=== PATIENT | female | born 1930 | race Caucasian/White ===

== ENCOUNTER → 2017-06-26 | Outpatient (CLI) | payer MEDICARE ==
[~2017-06-26] MED LIST: IOHEXOL 350 MG/ML 10 ML VIAL (for RAD DIAG) IVCONTRAST ONE
--- NOTE | 2017-06-26 13:05 | PD.FRAIL ---
Date: Jun 26, 2017 Height: Weight: Assessment Performed: Outpatient Albumin 3.7 Pass/Fail: Pass [place] Activities Daily Living [place] ADL Score: Bathing(bathes self/help in single area): [place] (1), Dressing(gets/puts clothes on self): [place] (1), Toileting(goes without help): [place] ( 1), [facility] [place] (1), Continence( complete self-control): [place] (1), Feeding(self, prep by another allowed) : [place] (1), Total: 6 Pass/Fail: Pass Site Promotion Agent Strength Grasp 1: 15 Grasp 2: 12 Grasp 3: 10 Average: 12.3 Pass/Fail: Fail 15-Foot Walk 15-Foot Walk (seconds): 10.6 (uses cane) Pass/Fail: Fail Total Frailty Total Frailty (out of 4): 2 Frailty Index Score Reference Site Promotion Agent Strength: BMI: <=23 Cutoff for prenatal teacher strength(Kg): <=17 BMI: 23.1-26 Cutoff for prenatal teacher strength(Kg): <=17.3 BMI: 26.1-29 Cutoff for prenatal teacher strength(Kg): <=18 BMI: >29 Cutoff for prenatal teacher strength(Kg): <=21 15-Foot Walk: Height: <=159 cm 15-Foot Walk Cutoff Time: >=7 seconds Height: >159 cm 15-Foot Walk Cutoff Time: >=6 seconds Dasha Kim RN Jun 26, 2017 13:05
[2017-06-26 15:08] LABS: AUTOMATED NEUTROPHIL # 5.7 TH/MM3 (1.8-7.7); BASOPHIL % 0.4 % (0.0-2.0); EOSINOPHIL # 0.1 TH/MM3 (0-0.4); EOSINOPHIL % 1.2 % (0.0-4.0); HEMATOCRIT 37.5 % (35.0-46.0); LYMPH % 15.4 % (9.0-44.0); LYMPHOCYTE # 1.2 TH/MM3 (1.0-4.8); MEAN CELL VOLUME 96.5 FL (80.0-100.0); MEAN CORPUSCULAR HEMOGLOBIN 33.4 PG (27.0-34.0); MEAN CORPUSCULAR HGB CONC 34.6 % (32.0-36.0); MEAN PLATELET VOLUME 8.9 FL (7.0-11.0); MONO % 8.7 % (0.0-8.0); MONOCYTE # 0.7 TH/MM3 (0-0.9); NEUT % 74.3 % (16.0-70.0); PLATELET COUNT 170 TH/MM3 (150-450); RED BLOOD COUNT 3.88 MIL/MM3 (4.00-5.30); RED CELL DISTRIBUTION WIDTH 12.6 % (11.6-17.2); WHITE BLOOD COUNT 7.7 TH/MM3 (4.0-11.0)
[2017-06-26 15:26] LABS: PROTHROMBIN TIME - PATIENT 10.4 SEC (9.8-11.6)
--- NOTE | 2017-06-26 15:35 | RADRPT ---
EXAM DATE/TIME: 06/26/2017 09:32 [facility] COMPARISON: No previous studies available for comparison. INDICATIONS : Pre op TAVR. IV CONTRAST: 100 cc Omnipaque 350 (iohexol) IV RADIATION DOSE: 11.48 CTDIvol (mGy) MEDICAL HISTORY : None SURGICAL HISTORY : None. ENCOUNTER: Initial ACUITY: 1 day PAIN SCALE: 0/10 LOCATION: chest TECHNIQUE: Volumetric scanning was performed using a multi-row detector CT scanner. The data was post processed with a variety of visualization algorithms including full volume maximum intensity projection, multi -planar sliding thin slab reformation, curved planar reformation, and surface rendering techniques. Using automated exposure control and adjustment of the mA and/or kV according to patient size, radiat ion dose was kept as low as reasonably achievable to obtain optimal diagnostic quality images. DIC OM format image data is available electronically for review and comparison. FINDINGS: CARDIAC: The coronary system is right dominant. There is normal anatomic branching of the coronaries from the arch. There is minimal atherosclerotic plaquing. The coronaries are otherwise widely patent. AORTIC ROOT/VALVE: There is a tricuspid aortic valve. There is moderate calcification of the aortic annulus and the valv e leaflets. THORACIC AORTA: The aortic root measures 2.9 cm just above the plane of the valve. The tubular portion of the ascendi ng aorta is somewhat larger measuring 3.7 cm. There is normal anatomic branching of the great vessels from the arch. The arch is normal in caliber measuring 2.7 cm. The descending thoracic aorta is norm al in caliber and widely patent throughout its course. The thoracic aorta measures 2.4 cm in its mid aspect. ABDOMINAL AORTA: There is mild fusiform dilation of the proximal celiac artery. The proximal celiac measures 1.1 cm in its largest segment. The splenic and the hepatic or patent. The CATY is normal in caliber with modera te ostial plaquing. There is a single renal artery on the right. There is a small accessory renal on the left. The renal arteries are widely patent. The infrarenal aorta is normal in caliber throughout its course and widely patent. Maximum dimension is 1.9 cm. There is mild diffuse atherosclerotic plaq uing. The CATY is patent. PELVIC CIRCULATION : The common iliac arteries are mildly diseased and sizable vessels bilaterally. The left common iliac measures 1.2 cm. The right common iliac measures 1.0 cm. The internal iliac and external iliac circul ation is only minimal disease and widely patent throughout its course. The common femoral arteries ar e widely patent bilaterally. THORAX: Imaging through the thorax demonstrates volume loss on the left. There are fibrotic changes in around the left hilus suggesting previous radiation therapy. There is a 3.1 x 2.9 cm area adjacent to the a rch medially which appears to represent a sizable area of fibrosis and consolidated lung. No previous exams are available for direct comparison. The right lung is clear. The heart is mildly enlarged. No significant hilar or mediastinal adenopathy is seen. Incidental note is made of calcification of the posterior wall of the left ventricle suggesting previous myocardial infarction. ABDOMEN: The appearance of the liver, spleen, pancreas, and adrenal glands and right kidney is within normal l imits. Incidental note is made of a 2.4 cm simple cyst within the left kidney. No retroperitoneal chas nopathy is present. PELVIS: There is no free fluid within the pelvis. No iliac or inguinal adenopathy is seen. CONCLUSION: 1. Calcification of the aortic annulus and aortic valve leaflets as described above. Measurements of the aortic root and ascending aorta are listed above. 2. Volume loss in the left lung with fibrotic change suggesting previous radiation therapy. 3. Calcification in the posterior wall of the left ventricle suggesting previous infarct. Marino Sloan MD on June 26, 2017 at 15:24 Board Certified Radiologist. This report was verified electronically.
[2017-06-26 15:51] LABS: ALBUMIN 3.7 GM/DL (3.4-5.0); BICARBONATE 31.5 MEQ/L (21.0-32.0); CALCIUM 8.9 MG/DL (8.5-10.1); CREATININE 0.89 MG/DL (0.50-1.00)
--- NOTE | 2017-06-30 12:16 | RSPPFT ---
DATE OF PROCEDURE: 06/26/17 COMMENTS: The forced vital capacity, FEV1, FEV1/FVC ratio and FEF 25-75 are all normal. IMPRESSION: This is a normal spirometry.
== END ==
LOC: HRSP 07:39
PROVIDERS: ATTEND Internal Medicine
DX: Z01.812 Encounter for preprocedural laboratory examination (principal); I35.0 Nonrheumatic aortic (valve) stenosis
CPT/HCPCS: 36415; 74174; 80048; 82040; 85025; 85610; 94010; Q9967

== ENCOUNTER 2017-07-09 07:45 | Inpatient (IN) | payer MEDICARE ==
[~2017-07-09] VITALS: Ht 154.9 cm; Wt 73.6 kg
[2017-07-09] VITALS (7 sets, daily range): BP systolic 123–169; BP diastolic 42–66; PULSE 52–65; RESP 16–18; TEMP 96.1–98.2; O2SAT 95–100
[2017-07-09] MEDS ORDERED: PAXI10TA8 PO (09:08)
[2017-07-09] MEDS ORDERED: BENA5TAB PO (09:08)
[2017-07-09] MEDS ORDERED: DILT240C44 PO (09:08)
[2017-07-09] MEDS ORDERED: LEVO50TA4 PO (09:08)
[2017-07-09] MEDS ORDERED: ALEN1TAB48 PO (09:08)
[2017-07-09] MEDS ORDERED: MUPIROCIN 2% OINT 1 APPLIC/GM SYRINGE EACH NARE PRN (09:15)
[2017-07-09] MEDS ORDERED: POVIDONE IODINE 5% (ANTISEPSIS KIT) EACH NARE PRN (09:15)
[2017-07-09] MEDS ORDERED: SODIUM CHLOR 0.9% 1000 ML 1,000 ML IV SCH (09:15)
[2017-07-09] MEDS ORDERED: CHLORHEXIDINE GLUCONATE 2 % 1 PACK (2 CLOTHS) TOPICAL PRN ×2 (09:15→09:30)
[2017-07-09] MEDS ORDERED: CEFAZOLIN INJ 2,000 MG in SODIUM CHLORIDE 0.9% INJ 100 ML IV PRN (09:15)
[2017-07-09] MEDS ORDERED: LACTATED RINGER'S 1000 ML IV PRN (09:30)
[2017-07-09] MEDS ORDERED: METOPROLOL TARTRATE 25 MG TAB PO PRN (09:30)
[2017-07-09] MEDS ORDERED: POVIDONE IODINE 5% (ANTISEPSIS KIT) 4 APPLICATIONS EACH NARE PRN (09:30)
[2017-07-09] MEDS ORDERED: SODIUM CHLORID 0.9% 500 ML IV PRN (09:30)
[2017-07-09] MEDS ORDERED: ASPIRIN 325 MG TAB PO SCH (09:30)
[2017-07-09 09:53] LABS: AUTOMATED NEUTROPHIL # 4.1 TH/MM3 (1.8-7.7); BASOPHIL % 0.5 % (0.0-2.0); EOSINOPHIL # 0.1 TH/MM3 (0-0.4); EOSINOPHIL % 1.1 % (0.0-4.0); HEMOGLOBIN 11.7 GM/DL (11.6-15.3); LYMPHOCYTE # 0.7 TH/MM3 (1.0-4.8); MEAN CELL VOLUME 96.7 FL (80.0-100.0); MEAN CORPUSCULAR HEMOGLOBIN 33.4 PG (27.0-34.0); MEAN CORPUSCULAR HGB CONC 34.5 % (32.0-36.0); MEAN PLATELET VOLUME 9.5 FL (7.0-11.0); MONO % 10.7 % (0.0-8.0); MONOCYTE # 0.6 TH/MM3 (0-0.9); NEUT % 75.7 % (16.0-70.0); PLATELET COUNT 129 TH/MM3 (150-450); RED BLOOD COUNT 3.52 MIL/MM3 (4.00-5.30); RED CELL DISTRIBUTION WIDTH 13.1 % (11.6-17.2); WHITE BLOOD COUNT 5.4 TH/MM3 (4.0-11.0)
[2017-07-09 10:00] LABS: PROTHROMBIN TIME - PATIENT 10.5 SEC (9.8-11.6)
[2017-07-09 10:07] LABS: BICARBONATE 25.9 MEQ/L (21.0-32.0); CALCIUM 8.5 MG/DL (8.5-10.1); CREATININE 0.65 MG/DL (0.50-1.00)
[2017-07-09] MEDS ORDERED: POTASSIUM CHLORIDE 20 MEQ/10 ML VIAL ONE (11:11)
--- NOTE | 2017-07-09 11:21 | MH ---
cc: Nigel Newell MD,Koby Pepe DATE OF ADMISSION: 07/09/2017 INDICATION: Transcatheter aortic valve replacement. PRIMARY CARE PHYSICIAN: Dr. Rico. CHARGE LOADER: Dr. Escobar. BRIEF HISTORY OF PRESENT ILLNESS: This is an 87-year-old female who follows in the outpatient setting with Dr. Escobar, cardiology. The patient has symptoms of exertional dyspnea and chest pain. She underwent cardiac catheterization, which primarily revealed nonobstructive mild coronary artery disease. She was then referred to [facility] for consideration of transcatheter aortic valve replacement. In the preoperative workup, she was evaluated by both Dr. Hamilton and Dr. Morocho, cardiothoracic surgery, and felt to be high risk for surgical aortic valve replacement through traditional routes. She underwent a full pretranscatheter aortic valve workup and is now here today for inpatient admission and planned procedure. PAST MEDICAL HISTORY: Severe aortic valve stenosis, chronic diastolic heart failure, hypertension, hypothyroidism, and lung cancer. ALLERGIES: GABAPENTIN. SOCIAL HISTORY: Prior tobacco use. Denies any alcohol or drug use. REVIEW OF SYSTEMS: A 12-point review of systems performed, negative unless otherwise noted in the history of present illness. LABORATORY DATA: WBC 5.4, hemoglobin is 11.7, hematocrit is 34.0, platelet count is 129. INR is 1.0. Sodium 144, potassium 3.2, BUN is 19, creatinine 0.65. MEDICATIONS: See medication reconciliation. PHYSICAL EXAMINATION: VITAL SIGNS: Temperature is 97, pulse is 60, blood pressure 156/66 mmHg. GENERAL: Alert and oriented x 2, no acute distress. HEENT: Shows pupils reactive to light and accomodation. Extraocular movement intact. NECK: No elevation of jugular venous distension. No thyromegaly. No lymphadenopathy. No carotid bruit. LUNGS: Clear to auscultation bilaterally. CARDIOVASCULAR: Regular rhythm. A III/ crescendo decrescendo murmur at left sternal border. ABDOMEN: Nontender, nondistended with good bowel sounds. No hepatosplenomegaly. EXTREMITIES: Show no clubbing, cyanosis or edema. Good peripheral pulses. NEUROLOGIC: Cranial nerves intact. Motor, sensory grossly intact. LABORATORY DATA: Sodium 144, potassium 3.2, chloride is 109, BUN is 19, creatinine is 0.65. INR is 1. WBC 5.4, hemoglobin is 11.7, platelet count is 129. PRE-TAVR WORKUP: STS score calculated 6.05%. [place] Heart Association class III. BMI 28.5. 2/4 frailty score. ELECTROCARDIOGRAM: Sinus bradycardia, no intraventricular conduction delay. Pulmonary function tests normal. FEV1 is 1.51. Echocardiogram performed on 04/17/2017 shows jet velocity of 5.53 meters per second, mean gradient 57.3 mmHg, calculated aortic valve area of 0.49 cm2 with an ejection fraction 65-70%. Mild mitral and tricuspid regurgitation. Cardiac catheterization performed on 04/24/2017 showed mild nonobstructive coronary disease. CT analysis performed on 06/26/2017 shows a short annulus diameter of 20.9 mm, the long annulus diameter of 26.4 mm, annular area of 430.1 mm2. Sinus of Valsalva 29.7 mm and sinotubular junction 28.7 mm. Left coronary height 15.6 mm and right coronary height 16.8 mm. Lower extremity runoff shows minimal luminal diameter of the right lower extremity 8.3 mm and left 7.3 mm. ASSESSMENT: 1. Severe aortic valve stenosis. 2. Hypertension, history of stroke, hypothyroidism, home oxygen and diastolic congestive heart failure, New Heart Association class III. PLAN: The patient was evaluated by cardiothoracic surgery in the preoperative setting, felt to be high risk for surgery traditional surgical AVR, is now here today for transcatheter aortic valve replacement and has qualifying echo documenting severe aortic valve stenosis in the setting a normal ejection fraction. We are going to plan for 26 mm S3 Lake bioprosthetic percutaneous valve deployment via a right common femoral approach. The risks, benefits, and alternatives were discussed with the patient. The patient understood and consented to proceed. MD ASHLI Perera/KD , 10:46 AM , 11:20 AM
[2017-07-09] MEDS ORDERED: PROTAMINE SULFATE 50 MG/5 ML VIAL ONE (11:35)
[2017-07-09] MEDS ORDERED: HEPARIN SODIUM - SQ 10,000 UNITS/ML VIAL ONE (11:35)
[2017-07-09] MEDS ORDERED: PHENYLEPH/NS 1000 MCG/10 ML SYR IV ONE (12:00)
[2017-07-09] MEDS ORDERED: LIDOCAINE HCL 1% PF 5 ML SYRINGE OTHER ONE (12:00)
[2017-07-09] MEDS ORDERED: ROCURONIUM INJ 50 MG/5 ML SYRINGE IV PUSH ONE (12:00)
[2017-07-09] MEDS ORDERED: ONDANSETRON HCL 4 MG/2 ML VIAL IV ONE (12:00)
[2017-07-09] MEDS ORDERED: SODIUM CHLOR 0.9% 1000 ML INJ 1,000 ML IV ONE (12:00)
[2017-07-09] MEDS ORDERED: NEOSTIGMINE 5 MG/5 ML SYRINGE IV PUSH ONE (12:00)
[2017-07-09] MEDS ORDERED: PROPOFOL 200 MG/20 ML AMP IV ONE (12:00)
[2017-07-09] MEDS ORDERED: DEXAMETHASONE SOD PHOS 4 MG/ML VIAL IV ONE (12:00)
[2017-07-09] MEDS ORDERED: ePHEDrine/NS 25 MG/5 ML SYRINGE IV ONE (12:00)
[2017-07-09] MEDS ORDERED: GLYCOPYRROLATE 1 MG/5 ML SYRINGE IV PUSH ONE (12:00)
[2017-07-09] MEDS ORDERED: IOHEXOL 350 MG/ML 100 ML BTL (for RAD DIAG) IVCONTRAST ONE (12:34)
--- NOTE | 2017-07-09 13:03 | EKG ---
Date Performed: 07/09/2017 Time Performed: 09:37:56 PTAGE: 87 years EKG: Sinus bradycardia. Prolonged QT interval Lateral ST-T changes are nonspecific Borderline EC G NO PREVIOUS TRACING DOCTOR: Nigel Newell Interpretating Date/Time 07/09/2017 13:02:01
[2017-07-09] MEDS ORDERED: MIDAZOLAM HCL 2 MG/2 ML VIAL ONE (13:38)
[2017-07-09] MEDS ORDERED: fentaNYL CITRATE 250 MCG/5 ML AMP ONE (13:39)
[2017-07-09] MEDS ORDERED: GLUCAGON 1 MG/ML VIAL OTHER PRN (13:45)
[2017-07-09] MEDS ORDERED: DEXTROSE 50% IN WATER 50 ML VIAL(D50) IV PUSH PRN (13:45)
[2017-07-09] MEDS ORDERED: SODIUM CHLOR 0.9% 1000 ML INJ 1,000 ML IV SCH ×2 (14:00→15:00)
[2017-07-09] MEDS ORDERED: CLOPIDOGREL 300 MG TAB PO ONE (14:00)
[2017-07-09] MEDS ORDERED: MISC INFORMATION OTHER SCH (14:00)
--- NOTE | 2017-07-09 14:03 | PD.OP ---
cc: Asiya Morocho MD; Nigel Newell MD Operative Report Date of Surgery: Jul 09, 2017 Preoperative Diagnosis: (1) Aortic stenosis (2) Diastolic heart failure Postoperative Diagnosis: same Procedure: Transcatheter aortic valve replacement with a 26 Veronika 3 tissue valve [place] aortic valvuloplasty with a 23 Lake balloon Bilateral percutaneous femoral artery access with Perclose closure on the right Left Femoral venous access Aortography Fluoroscopy Anesthesia: Dr. Green Surgeon: Asiya Morocho Co-surgeon - Dr. Newell Bellhop Captain(s): none Operation and Findings: The risks, benefits, complications, treatment options, and expected outcomes were discussed with the patient. The possibilities of reaction to medication, pulmonary aspiration, perforation of viscus, bleeding, recurrent infection, the need for additional procedures, failure to diagnose a condition, and creating a complication requiring transfusion or operation were discussed with the patient. The patient concurred with the proposed plan, giving informed consent. The site of surgery properly noted/marked. The patient was taken to the hybrid operating room, identified as Ina Mederoscken and the procedure verified as Transcatheter Aortic Valve Replacement. A Time Out was held and the above information confirmed. Standard monitoring lines and Rosa catheter were placed. General anesthesia was induced. The patient was prepped and draped in a sterile fashion. Initially, left femoral arterial and venous access was acquired using a Seldinger percutaneous technique. The details of this procedure were dictated under separate note by cardiology. Once a pigtail was positioned in the aortic annulus and a temporary transvenous pacemaker wire was placed in the right ventricular apex and tested, a the right femoral artery was accessed using a needle followed by a guidewire under fluoroscopic guidance. The patient was heparinized and Perclose devices deployed for later closure. Serial dilators were used to dilate the right femoral artery to 14 Romanian caliber. The Lake sheath was then inserted into the external iliac artery up to the distal abdominal aorta. Arch aortography was performed to define the implant view. A balloon aortic valvuloplasty was then performed using a 23 x 4 balloon with the patient being paced at 180 beats per minute. A 26 Lake Veronika transcatheter aortic valve was then positioned in the annulus and deployed with the patient being paced at 180 beats per minute. Following deployment, the valve apparatus was withdrawn and ABEBE were performed to assess the valve. The valve had no significant perivalvular leaks. Gradients were then measured and the sheath was removed. Perclose sutures were secured and the patient received protamine. An additional angioseal was deployed on the right for hemostasis. Sterile dressings were placed. At the end of the operation, all sponge, instruments, and needle counts were correct. The patient was transferred to the CVICU in stable condition. Findings: 26 S3 TAVR with no PVL. Implants: 26 Veronika 3 tissue valve Complications: none Disposition: to CVICU in stable condition Asiya Morocho MD Jul 09, 2017 14:03
--- NOTE | 2017-07-09 14:40 | ECHRPT ---
Indication: TAVR CONCLUSIONS Normal left ventricular size and wall thickness. The left ventricular systolic function is normal wi th an estimated ejection fraction in the range of 60-65%. Left ventricular diastolic function parameters a re normal. Severe aortic valve stenosis. bioprosthetic aortic valve device successfully deployed BP: / HR: Rhythm: Technical Quality: Medications Complications Proc. Components The patient was brought to the diagnostic imaging area in a fasting state after o btaining an informed consent. The patient was premedicated with IV Versed and IV Fentanyl. The creel hand ior pharynx was sprayed with Cetacaine spray and the patient was administered viscous Xylocaine 2 %. The ABEBE probe was passed into the posterior pharynx , mid-esophagus, distal esophagus, and gastric fundus. ABEBE was performed at multiple levels. The patient tolerated the procedure well and there were no complications. The patient was transferred to the floor in satisfactory condition.. FINDINGS LEFT VENTRICLE Normal left ventricular size and wall thickness. The left ventricular systolic function is normal wi th an estimated ejection fraction in the range of 60-65%. Left ventricular diastolic function parameters a re normal. RIGHT VENTRICLE Normal right ventricular size and systolic function. LEFT ATRIUM The left atrial size is normal. RIGHT ATRIUM The right atrial size is normal. ATRIAL SEPTUM A patent foramen ovale is present with a [id number] shunt demonstrated by color flow Doppler interrogation. AORTA The aortic root and proximal ascending aorta are normal in size on limited imaging. MITRAL VALVE Trace mitral valve regurgitation. AORTIC VALVE Severe aortic valve stenosis TRICUSPID VALVE Structurally normal tricuspid valve. No tricuspid valve stenosis or regurgitation. VESSELS The inferior vena cava is normal in size. PULMONARY VALVE The pulmonary valve is not well visualized. PERICADIUM No pericardial effusion. Nigel Newell MD, FACC (Electronically Signed) Final Date:09 July 2017 14:39
[2017-07-09] MEDS ORDERED: cloNIDine HCL 0.1 MG TAB PO PRN (15:00)
[2017-07-09] MEDS ORDERED: hydrALAZINE HCL 50 MG TAB PO PRN (15:00)
[2017-07-09] MEDS: METOPROLOL TARTRATE 25 MG TAB PO SCH ×2 (15:00→21:20)
--- NOTE | 2017-07-09 18:46 | PD.PROCEDR ---
Procedure Note Procedure Procedure: Transesophageal Echocardiography Diagnosis: Severe aortic stenosis Indications: Perioperative planning for transcatheter aortic valve replacement Consent: Obtained Anesthesia: General endotracheal anesthesia Description of the Procedure: The patient was sedated and mechanically ventilated. The echo probe was inserted easily and without resistance. At the conclusion of the procedure, the echo probe was removed. Please see detailed echocardiogram report for formal findings. Preliminary Findings (not confirmed): pre-procedure: 1) grossly normal biventricular function 2) [id number] tricuspid regurgitation 3) evidence of continuous [id number]-[id number] intra-atrial shunting by color flow Doppler 4) evidence of left atrial hypertension 5) mild mitral regurgitation 6) severe aortic stenosis 7) no aortic regurgitation 8) no pericardial effusion post-procedure: 1) s/p successful placement of transcatheter aortic valve 2) no evidence of bioprosthetic valve stenosis 3) no perivalvular leak 4) no pericardial effusion The patient tolerated the procedure well with no hemodynamic instability. There were no immediate complications noted. There was minimal EBL. I personally performed the procedure. Rolando Michele MD Jul 09, 2017 18:46
--- NOTE | 2017-07-09 18:54 | PD.CONS ---
[facility] Service Critical Care Medicine Consult Requested By Dr. Newell Reason for Consult perioperative management of medical comorbidities Primary Care Physician Calin Rico MD History of Present Illness This is an 87-year-old female with history of severe aortic stenosis who presents for elective transcatheter aortic valve replacement. She underwent uncomplicated procedure via common iliac access. At the conclusion of the case , she was noted to be in third-degree heart block requiring transvenous pacing. She arrives to the CVICU recently extubated and arousing from anesthesia. Due to arousal from anesthesia only a limited review of systems is obtained. It is negative for headache, nausea, vomiting, chest pain, shortness of breath. The remainder of the history is difficult to obtain due to her arousing from anesthesia. Review of Systems ROS Limitations: Clinical Condition, Altered Mental Status Eyes: DENIES: Eye pain Respiratory: DENIES: Shortness of breath Cardiovascular: DENIES: Chest pain Gastrointestinal: DENIES: Nausea, Vomiting Neurologic: DENIES: Headache ROS Arousing from anesthesia Past Family Social History Allergies: Coded Allergies: gabapentin (Verified Allergy, Severe, 07/09/17) Past Medical History Severe aortic stenosis Chronic diastolic heart failure Hypertension Hypothyroid Lung cancer Past Surgical History No recent pertinent past surgical history Reported Medications Paxil (Paroxetine HCl) 10 Mg Tab 10 Mg PO DAILY Levothyroxine (Levothyroxine Sodium) 50 Mcg Tab 50 Mcg PO DAILY Diltiazem CD 24 HR 240 Mg Caper 240 Mg PO DAILY Benazepril (Benazepril HCl) 5 Mg Tab 5 Mg PO DAILY Alendronate (Alendronate Sodium) 70 Mg Tab 70 Mg PO Q7D Active Ordered Medications See MAR Family History Reviewed and found to be noncontributory to her acute illness Social History Former smoker. Denies EtOH or other drugs. Physical Exam Vital Signs Vital Signs Date Time Temp Pulse Resp B/P (MAP) Pulse Ox O2 Delivery O2 Flow Rate FiO2 07/09/17 16:09 99 Nasal Cannula 2.00 07/09/17 15:46 52 07/09/17 15:00 97.5 53 16 158/61 (93) 99 156/52 (86) 07/09/17 15:00 52 07/09/17 14:13 54 07/09/17 13:00 54 07/09/17 13:00 56 07/09/17 13:00 96.1 54 16 141/55 (83) 100 148/58 (88) 07/09/17 09:09 97.8 59 16 156/66 (96) 98 Physical Exam GENERAL: Elderly female, lying in bed, arousing from anesthesia HEENT: Normocephalic. Atraumatic. Pupils equal, round, reactive, conjugate. Mucous membranes are moist NECK: Trachea is midline. There is no JVD. Right IJ to reduce her sheath with transvenous pacer in place, site is clean dry and intact. CHEST: Equal chest rise. Nasal cannula oxygen. CARDIOVASCULAR: Bradycardic rate, paced rhythm. V paced at 50. Transvenous pacer set VVI 50. ABDOMEN: Soft, nontender, nondistended. No guarding. MUSCULOSKELETAL: Pulses 2+. No peripheral edema. Bilateral groin sites with dressings intact, very minimal hematoma over the left groin. Distal pulses dopplerable. NEUROLOGICAL: RASS -2. Arousing from anesthesia. Moves all extremities. Weakly follows commands when aroused. No focal deficits. Laboratory Laboratory Tests Test 07/09/17 09:00 White Blood Count 5.4 Red Blood Count 3.52 Hemoglobin 11.7 Hematocrit 34.0 Mean Corpuscular Volume 96.7 Mean Corpuscular Hemoglobin 33.4 Mean Corpuscular Hemoglobin Concent 34.5 Red Cell Distribution Width 13.1 Platelet Count 129 Mean Platelet Volume 9.5 Neutrophils (%) (Auto) 75.7 Lymphocytes (%) (Auto) 12.0 Monocytes (%) (Auto) 10.7 Eosinophils (%) (Auto) 1.1 Basophils (%) (Auto) 0.5 Neutrophils # (Auto) 4.1 Lymphocytes # (Auto) 0.7 Monocytes # (Auto) 0.6 Eosinophils # (Auto) 0.1 Basophils # (Auto) 0.0 CBC Comment DIFF FINAL Differential Comment Prothrombin Time 10.5 Prothromb Time International Ratio 1.0 Activated Partial Thromboplast Time 25.9 Blood Urea Nitrogen 19 Creatinine 0.65 Random Glucose 97 Calcium Level 8.5 Sodium Level 144 Potassium Level 3.2 Chloride Level 109 Carbon Dioxide Level 25.9 Anion Gap 9 Estimat Glomerular Filtration Rate 87 Result Diagram: 07/09/17 0900 07/09/17 0900 Assessment and Plan Assessment and Plan Assessment: 87-year-old female postop day 0 status post transcatheter aortic valve replacement. Admit to ICU. IV fluids. Close monitoring. Status post transcatheter aortic valve replacement via groin access 07/09 Maintenance IV fluids Continue Rosa overnight Out of bed after flat time Frequent neurovascular checks Close urine output monitoring And a coagulation per minor Third-degree heart block Consult elective physiology Continued transvenous pacer VVI 50 Hypertension Restart home antihypertensives as needed Goal systolic blood pressure less than 180 Hypothyroidism Restart home Synthroid Chronic diastolic heart failure Evidence of chronic volume overload on echo. Will gently fluid resuscitate postoperatively, but would have low threshold for diuresis on postop day 1. Incentive spirometer to bedside Advance diet after flat time SCDs Remain in ICU. Rolando Michele MD Jul 09, 2017 18:54
[2017-07-09] MEDS ORDERED: ALENDRONATE SODIUM 70 MG TAB PO SCH (19:00)
[2017-07-09] MEDS ORDERED: PILL SPLITTER OTHER PRN (20:15)
[2017-07-09] MEDS ORDERED: oxyCODONE/ACETAMINOPHEN 5 MG/325 MG TAB PO PRN ×2 (23:15)
[2017-07-10] VITALS (9 sets, daily range): BP systolic 97–128; BP diastolic 45–57; PULSE 55–67; RESP 16–20; TEMP 97.7–98.3; O2SAT 95–98
[2017-07-10 05:28] LABS: HEMATOCRIT 28.4 % (35.0-46.0); HEMOGLOBIN 9.9 GM/DL (11.6-15.3); MEAN CELL VOLUME 96.6 FL (80.0-100.0); MEAN CORPUSCULAR HEMOGLOBIN 33.6 PG (27.0-34.0); MEAN CORPUSCULAR HGB CONC 34.8 % (32.0-36.0); MEAN PLATELET VOLUME 9.4 FL (7.0-11.0); PLATELET COUNT 121 TH/MM3 (150-450); RED BLOOD COUNT 2.94 MIL/MM3 (4.00-5.30); RED CELL DISTRIBUTION WIDTH 13.2 % (11.6-17.2); WHITE BLOOD COUNT 11.8 TH/MM3 (4.0-11.0)
[2017-07-10 05:51] LABS: BICARBONATE 25.4 MEQ/L (21.0-32.0); CALCIUM 7.9 MG/DL (8.5-10.1); CREATININE 0.56 MG/DL (0.50-1.00)
[2017-07-10] MEDS: LEVOTHYROXINE SODIUM 50 MCG TAB PO SCH (06:00)
[2017-07-10] MEDS ORDERED: DILTIAZEM-CD 240 MG CAP ER PO SCH (09:00)
[2017-07-10] MEDS: METOPROLOL TARTRATE 25 MG TAB PO SCH (09:00)
[2017-07-10] MEDS ORDERED: PAROXETINE 10 MG PO SCH (09:00)
[2017-07-10] MEDS ORDERED: LISINOPRIL 5 MG TAB PO SCH (09:00)
[2017-07-10] MEDS: PARoxetine HCL 20 MG TAB PO SCH (09:02)
[2017-07-10] MEDS: FUROSEMIDE 20 MG TAB PO SCH (09:02)
[2017-07-10] MEDS: CLOPIDOGREL 75 MG TAB PO SCH (09:02)
--- NOTE | 2017-07-10 10:19 | RADRPT ---
EXAM DATE/TIME: 07/10/2017 09:06 [facility] COMPARISON: CTA TRANS AORTIC VALVE REPLACEMENT, June 26, 2017, 9:32. INDICATIONS : Trans aortic valve replacement. MEDICAL HISTORY : None. SURGICAL HISTORY : Trans aortic valve replacement. Infuse a port. ENCOUNTER: Subsequent ACUITY: 4 - 6 days PAIN SCORE: 0/10 LOCATION: Bilateral chest FINDINGS: Aortic valve device in place. There is slight loss in left hemithorax with mediastinal shift towards the left and consolidation in the left upper lung.. No new infiltrates seen. Right lung is clear. Right internal jugular catheter tip projects in the right ventricle and [id number]-[id number] catheter tip i n projects in the distal superior vena cava. CONCLUSION: Stable appearance to the lungs with slight loss in left hemithorax and medial left upper lung consoli dation. [id number] catheter tip in good position. No evidence of pneumothorax. Robbin Rose MD on July 10, 2017 at 10:14 Board Certified Radiologist. This report was verified electronically.
--- NOTE | 2017-07-10 10:58 | PD.CARD.PN ---
Subjective Subjective Remarks doing great reading a book in her chair rhythm stable Objective Medications Current Medications Medications (Trade) Dose Ordered Sig/Yakelin Route Start Time Stop Time Status Last Admin Cefazolin Sodium 2000 mg/Sodium Chloride 120 ml @ 240 mls/hr HVAC COMMERCIAL SALESPERSON PRN IV 07/09/17 09:15 07/12/17 09:14 (Betadine 5% Antisepsis Kit) 1 applic HVAC COMMERCIAL SALESPERSON PRN EACH NARE 07/09/17 09:15 07/12/17 09:14 (Bactroban Nasal 2% Oint) 1 applic HVAC COMMERCIAL SALESPERSON PRN EACH NARE 07/09/17 09:15 07/12/17 09:14 (Chlorhexidine 2% Cloth) 3 pack HVAC COMMERCIAL SALESPERSON PRN TOPICAL 07/09/17 09:15 07/12/17 09:14 07/09/17 09:49 (Aspirin) 325 mg HVAC COMMERCIAL SALESPERSON PO 07/09/17 09:30 07/12/17 09:29 07/09/17 09:48 Lactated Ringer's 1,000 ml @ 30 mls/hr Q24H PRN IV 07/09/17 09:30 07/12/17 09:29 Sodium Chloride 500 ml @ 30 mls/hr [id number] PRN IV 07/09/17 09:30 07/12/17 09:29 (Lopressor) 25 mg HVAC COMMERCIAL SALESPERSON PRN PO 07/09/17 09:30 07/12/17 09:29 (Betadine 5% Antisepsis Kit) 1 applic HVAC COMMERCIAL SALESPERSON PRN EACH NARE 07/09/17 09:30 07/12/17 09:29 07/09/17 09:49 (Chlorhexidine 2% Cloth) 3 pack HVAC COMMERCIAL SALESPERSON PRN TOPICAL 07/09/17 09:30 07/12/17 09:29 Miscellaneous Information 1 UNSCH X1 OTHER 07/09/17 14:00 07/11/17 13:59 (Plavix) 75 mg DAILY PO 07/10/17 09:00 07/10/17 09:02 (D50w (Vial) Inj) 50 ml UNSCH PRN IV PUSH 07/09/17 13:45 (Glucagon Inj) 1 mg UNSCH PRN OTHER 07/09/17 13:45 (Lasix) 20 mg DAILY PO 07/10/17 09:00 07/10/17 09:02 (Apresoline) 50 mg Q8HR PRN PO 07/09/17 15:00 (Catapres) 0.1 mg Q6H PRN PO 07/09/17 15:00 (Synthroid) 50 mcg DAILY@0600 PO 07/10/17 06:00 07/10/17 06:00 (Paxil) 10 mg DAILY PO 07/10/17 09:00 07/10/17 09:02 (Pill Splitter) 1 ea UNSCH PRN OTHER 07/09/17 20:15 (Percocet 5-325 Mg) 1 tab Q4H PRN PO 07/09/17 23:15 07/09/17 23:32 (Percocet 5-325 Mg) 2 tab Q4H PRN PO 07/09/17 23:15 (Prinivil) 2.5 mg DAILY PO 07/11/17 09:00 Vital Signs / I&O Vital Signs Date Time Temp Pulse Resp B/P (MAP) Pulse Ox O2 Delivery O2 Flow Rate FiO2 07/10/17 09:05 21 07/10/17 07:00 59 07/10/17 07:00 98.0 59 16 106/57 (73) 96 128/51 (76) 07/10/17 07:00 59 07/10/17 03:00 55 07/10/17 03:00 98.1 55 16 97/46 (63) 95 123/51 (75) 07/10/17 03:00 55 07/10/17 00:32 18 07/09/17 23:00 59 07/09/17 23:00 97.9 59 16 169/62 (97) 96 07/09/17 23:00 59 07/09/17 21:40 95 21 07/09/17 19:00 65 07/09/17 19:00 65 07/09/17 19:00 98.2 65 18 142/56 (84) 97 123/42 (69) 07/09/17 16:09 99 Nasal Cannula 2.00 07/09/17 15:46 52 07/09/17 15:00 97.5 53 16 158/61 (93) 99 156/52 (86) 07/09/17 15:00 52 07/09/17 14:13 54 07/09/17 13:00 54 07/09/17 13:00 56 07/09/17 13:00 96.1 54 16 141/55 (83) 100 148/58 (88) I/O 07/09/17 07/09/17 07/09/17 07/10/17 07/10/17 07/10/17 07:00 15:00 23:00 07:00 15:00 23:00 Intake Total 1500 ml 840 ml 480 ml Output Total 500 ml 865 ml 995 ml Balance 1000 ml -25 ml -515 ml Intake Oral 240 ml 480 ml IV Total 600 ml Other 1500 ml Output Urine Total 450 ml 865 ml 995 ml Estimated Blood Loss 50 ml Physical Exam EYES: No scleral icterus. No injection or drainage. NECK: Supple, trachea midline. No JVD or lymphadenopathy. CARDIOVASCULAR: Regular rate and rhythm without murmurs, gallops, or rubs. RESPIRATORY: Breath sounds equal bilaterally. No accessory muscle use. GASTROINTESTINAL: Abdomen soft, non-tender, nondistended. MUSCULOSKELETAL: No cyanosis, or edema. BACK: Nontender without obvious deformity. No CVA tenderness. Laboratory Laboratory Tests Test 07/10/17 04:40 White Blood Count 11.8 TH/MM3 Red Blood Count 2.94 MIL/MM3 Hemoglobin 9.9 GM/DL Hematocrit 28.4 % Mean Corpuscular Volume 96.6 FL Mean Corpuscular Hemoglobin 33.6 PG Mean Corpuscular Hemoglobin Concent 34.8 % Red Cell Distribution Width 13.2 % Platelet Count 121 TH/MM3 Mean Platelet Volume 9.4 FL Blood Urea Nitrogen 13 MG/DL Creatinine 0.56 MG/DL Random Glucose 124 MG/DL Calcium Level 7.9 MG/DL Sodium Level 140 MEQ/L Potassium Level 4.2 MEQ/L Chloride Level 107 MEQ/L Carbon Dioxide Level 25.4 MEQ/L Anion Gap 8 MEQ/L Estimat Glomerular Filtration Rate 103 ML/MIN Imaging Last 24 hours Impressions Chest X-Ray 07/10/17 0000 Signed Impressions: Service Date/Time: July 09:06 - CONCLUSION: Stable appearance to the lungs with slight loss in left hemithorax and medial left upper lung consolidation. [id number] catheter tip in good position. No evidence of pneumothorax. Robbin Rose MD Assessment and Plan Assessment and Plan severe - s/p TAVR . doing well. no complaints bradycardia - resolving. no high degree AV block. appreciate dr hinton assistance. monitor another 24 hrs. DC metoprolol (didnt get today) and DC diltiazem 240 (did get today already). hypotension - asymptomatic. SBP 90-100. decrease lisinopril to 2.5 mg daily acute on chronic diastolic heart failure- well compensated. lasix 20 mg daily. ambulate DC planning for tomorrow asa and plavix Nigel Newell MD Jul 10, 2017 10:58
--- NOTE | 2017-07-10 11:00 | MB ---
cc: Brea Heard MD,Nigel Aly MD DATE: 07/09/2017 DATE OF CONSULTATION: 07/09/2017 REASON FOR CONSULTATION: Status post TAVR, possible AV block. HISTORY OF PRESENT ILLNESS: Mrs. Lou is an 87-year-old female with a history of high blood pressure, hypothyroidism, severe aortic stenosis who underwent a transaortic valvular replacement. The procedure was successful. Some bradycardia for ventricular pacing spike observed post-procedure. I was consulted for evaluation and management. The chart was reviewed. The patient was evaluated. ALLERGIES: NEURONTIN. SOCIAL HISTORY: The patient currently denies smoking and drinking. FAMILY HISTORY: Noncontributory to her current medical condition. MEDICATIONS: She is on: 1. Plavix 75 mg a day. 2. She is on Ancef 3. Aspirin 325 mg a day. 4. Cardizem CD 240 mg a day. 5. Lasix. 6. Lisinopril. 7. Levoxyl. 8. Metoprolol. 9. Oxycodone. REVIEW OF SYSTEMS: Currently the patient refers no chest pain, no chest discomfort. Feeling okay. No vomiting. No fever. PHYSICAL EXAMINATION: GENERAL: Alert, fully oriented. VITAL SIGNS: Blood pressure on evaluation 156/52, pulse 53, respiratory rate 18. LUNGS: Ventilated. CARDIOVASCULAR: S1, S2, regular. No gallop. ABDOMEN: Soft. No mass. No bruits. EXTREMITIES: No edema. SKIN: The right jugular area with central line and a temporary pacer. LABORATORY DATA: Electrocardiogram: Short PA/AZ interval. Possible atrial rhythm, now QRS. Diffuse ST changes. Hemoglobin is 11.7, white blood cell 5.4. Potassium 3.2, creatinine 0.65. ASSESSMENT AND RECOMMENDATIONS: Ms. Lou had a successful transcatheter aortic valve replacement. There was no atrioventricular block during the procedure. The patient is on beta nessa as well as a calcium channel nessa. She was developing some diffuse bradycardia. Currently, she is in atrial rhythm with 1:1 conduction. The P-wave is negative. There were some episodes of ventricular pacing. That may be due to bradycardia. At this point my recommendation is observation. There is no sign of atrioventricular dissociation or conduction disease. The bradycardia may be due to the negative chronotropic medication she is on. My recommendation is observation for the next 24 hours and from there further decision will be taken. MD MEMO Melgar/ABENA , 10:27 AM , 10:59 AM
--- NOTE | 2017-07-10 16:05 | PD.CAR.PN ---
CVT Progress Note Subjective/Hospital Course: 87-year-old female with history of severe aortic stenosis who presents for elective transcatheter aortic valve replacement. She underwent uncomplicated procedure via common iliac access. At the conclusion of the case, she was noted to be in third-degree heart block requiring transvenous pacing. 4/5 pt remains in junctional rhythm rate 60 temp pace lead left in place/ disconnected from generator transfer to stepdown and monitor overnight as per Cardiology Objective: GENERAL: A&O x 3 SKIN: Warm and dry. temp pacer right CVC, left groin with small amount of ecchymosis / good distal pulses HEAD: Normocephalic. EYES: No scleral icterus. No injection or drainage. NECK: Supple, trachea midline. No JVD or lymphadenopathy. CARDIOVASCULAR: Regular rate and rhythm without murmurs, gallops, or rubs. RESPIRATORY: Breath sounds equal bilaterally. No accessory muscle use. GASTROINTESTINAL: Abdomen soft, non-tender, nondistended. MUSCULOSKELETAL: No cyanosis, or edema. BACK: Nontender without obvious deformity. No CVA tenderness. Vital Signs Date Time Temp Pulse Resp B/P (MAP) Pulse Ox O2 Delivery O2 Flow Rate FiO2 07/10/17 15:08 62 07/10/17 15:07 98.3 67 16 101/49 (66) 98 07/10/17 11:20 62 07/10/17 11:18 98.3 62 16 112/45 (67) 95 Arterial Line 07/10/17 09:05 21 07/10/17 07:00 59 07/10/17 07:00 98.0 59 16 106/57 (73) 96 128/51 (76) 07/10/17 07:00 59 07/10/17 03:00 55 07/10/17 03:00 98.1 55 16 97/46 (63) 95 123/51 (75) 07/10/17 03:00 55 07/10/17 00:32 18 07/09/17 23:00 59 07/09/17 23:00 97.9 59 16 169/62 (97) 96 07/09/17 23:00 59 07/09/17 21:40 95 21 07/09/17 19:00 65 07/09/17 19:00 65 07/09/17 19:00 98.2 65 18 142/56 (84) 97 123/42 (69) 07/09/17 16:09 99 Nasal Cannula 2.00 Labs: Laboratory Tests Test 07/10/17 04:40 White Blood Count 11.8 TH/MM3 (4.0-11.0) Red Blood Count 2.94 MIL/MM3 (4.00-5.30) Hemoglobin 9.9 GM/DL (11.6-15.3) Hematocrit 28.4 % (35.0-46.0) Mean Corpuscular Volume 96.6 FL (80.0-100.0) Mean Corpuscular Hemoglobin 33.6 PG (27.0-34.0) Mean Corpuscular Hemoglobin Concent 34.8 % (32.0-36.0) Red Cell Distribution Width 13.2 % (11.6-17.2) Platelet Count 121 TH/MM3 (150-450) Mean Platelet Volume 9.4 FL (7.0-11.0) Blood Urea Nitrogen 13 MG/DL (7-18) Creatinine 0.56 MG/DL (0.50-1.00) Random Glucose 124 MG/DL (74-106) Calcium Level 7.9 MG/DL (8.5-10.1) Sodium Level 140 MEQ/L (136-145) Potassium Level 4.2 MEQ/L (3.5-5.1) Chloride Level 107 MEQ/L (98-107) Carbon Dioxide Level 25.4 MEQ/L (21.0-32.0) Anion Gap 8 MEQ/L (5-15) Estimat Glomerular Filtration Rate 103 ML/MIN (>89) Result Diagram: 07/10/17 0440 07/10/17 0440 (1) Aortic stenosis (2) Diastolic heart failure (3) S/P TAVR (transcatheter aortic valve replacement) Plan: transfer to [facility] as per cardiology further orders deferred to cardiology Liset Gray Jul 10, 2017 16:05
--- NOTE | 2017-07-10 16:57 | HHI.PR ---
Subjective Remarks Feeling better Objective Vital Signs Date Time Temp Pulse Resp B/P (MAP) Pulse Ox O2 Delivery O2 Flow Rate FiO2 07/10/17 15:08 62 07/10/17 15:07 98.3 67 16 101/49 (66) 98 07/10/17 11:20 62 07/10/17 11:18 98.3 62 16 112/45 (67) 95 Arterial Line 07/10/17 09:05 21 07/10/17 07:00 59 07/10/17 07:00 98.0 59 16 106/57 (73) 96 128/51 (76) 07/10/17 07:00 59 07/10/17 03:00 55 07/10/17 03:00 98.1 55 16 97/46 (63) 95 123/51 (75) 07/10/17 03:00 55 07/10/17 00:32 18 07/09/17 23:00 59 07/09/17 23:00 97.9 59 16 169/62 (97) 96 07/09/17 23:00 59 07/09/17 21:40 95 21 07/09/17 19:00 65 07/09/17 19:00 65 07/09/17 19:00 98.2 65 18 142/56 (84) 97 123/42 (69) I/O 07/09/17 07/09/17 07/09/17 07/10/17 07/10/17 07/10/17 07:00 15:00 23:00 07:00 15:00 23:00 Intake Total 1500 ml 840 ml 480 ml Output Total 500 ml 865 ml 995 ml Balance 1000 ml -25 ml -515 ml Intake Oral 240 ml 480 ml IV Total 600 ml Other 1500 ml Output Urine Total 450 ml 865 ml 995 ml Estimated Blood Loss 50 ml Result Diagram: 07/10/17 0440 07/10/17 0440 Imaging Alert, fully oriented Lungs: ventilated Heart: S1, S2 regular Abdomen: soft, no mass Ext: no edema Last Impressions Chest X-Ray 07/10/17 0000 Signed Impressions: Service Date/Time: July 09:06 - CONCLUSION: Stable appearance to the lungs with slight loss in left hemithorax and medial left upper lung consolidation. [id number] catheter tip in good position. No evidence of pneumothorax. Robbin Rose MD Current Medications Medications (Trade) Dose Ordered Sig/Yakelin Route Start Time Stop Time Status Last Admin Cefazolin Sodium 2000 mg/Sodium Chloride 120 ml @ 240 mls/hr SCREW MACHINE OPERATOR SWISS TYPE PRN IV 07/09/17 09:15 07/12/17 09:14 (Betadine 5% Antisepsis Kit) 1 applic SCREW MACHINE OPERATOR SWISS TYPE PRN EACH NARE 07/09/17 09:15 07/12/17 09:14 (Bactroban Nasal 2% Oint) 1 applic SCREW MACHINE OPERATOR SWISS TYPE PRN EACH NARE 07/09/17 09:15 07/12/17 09:14 (Chlorhexidine 2% Cloth) 3 pack SCREW MACHINE OPERATOR SWISS TYPE PRN TOPICAL 07/09/17 09:15 07/12/17 09:14 07/09/17 09:49 (Aspirin) 325 mg SCREW MACHINE OPERATOR SWISS TYPE PO 07/09/17 09:30 07/12/17 09:29 07/09/17 09:48 Lactated Ringer's 1,000 ml @ 30 mls/hr Q24H PRN IV 07/09/17 09:30 07/12/17 09:29 Sodium Chloride 500 ml @ 30 mls/hr [id number] PRN IV 07/09/17 09:30 07/12/17 09:29 (Lopressor) 25 mg SCREW MACHINE OPERATOR SWISS TYPE PRN PO 07/09/17 09:30 07/12/17 09:29 (Betadine 5% Antisepsis Kit) 1 applic SCREW MACHINE OPERATOR SWISS TYPE PRN EACH NARE 07/09/17 09:30 07/12/17 09:29 07/09/17 09:49 (Chlorhexidine 2% Cloth) 3 pack SCREW MACHINE OPERATOR SWISS TYPE PRN TOPICAL 07/09/17 09:30 07/12/17 09:29 Miscellaneous Information 1 UNSCH X1 OTHER 07/09/17 14:00 07/11/17 13:59 (Plavix) 75 mg DAILY PO 07/10/17 09:00 07/10/17 09:02 (D50w (Vial) Inj) 50 ml UNSCH PRN IV PUSH 07/09/17 13:45 (Glucagon Inj) 1 mg UNSCH PRN OTHER 07/09/17 13:45 (Lasix) 20 mg DAILY PO 07/10/17 09:00 07/10/17 09:02 (Apresoline) 50 mg Q8HR PRN PO 07/09/17 15:00 (Catapres) 0.1 mg Q6H PRN PO 07/09/17 15:00 (Synthroid) 50 mcg DAILY@0600 PO 07/10/17 06:00 07/10/17 06:00 (Paxil) 10 mg DAILY PO 07/10/17 09:00 07/10/17 09:02 (Pill Splitter) 1 ea UNSCH PRN OTHER 07/09/17 20:15 (Percocet 5-325 Mg) 1 tab Q4H PRN PO 07/09/17 23:15 07/09/17 23:32 (Percocet 5-325 Mg) 2 tab Q4H PRN PO 07/09/17 23:15 (Prinivil) 2.5 mg DAILY PO 07/11/17 09:00 Assessment and Plan Problem List: (1) S/P TAVR (transcatheter aortic valve replacement) ICD Codes: Z95.2 - Presence of prosthetic heart valve Plan: Patient in sinus rhythm Doing well Not pacing BB and CCB dc continue with current management If stable , and no conduction issue, can be DH in AM Brea Heard MD Jul 10, 2017 16:57
[2017-07-11 03:00] VITALS: BP 144/55; PULSE 64; PULSE 66; RESP 20; TEMP 97.1; O2SAT 94
--- NOTE | 2017-07-11 05:41 | EKG ---
Date Performed: 07/10/2017 Time Performed: 17:09:58 PTAGE: 87 years EKG: Probable atrial fibrillation Inferior/lateral T wave changes may be due to myocardial ische katerine Abnormal ECG PREVIOUS TRACING : 07/10/2017 05.02 No significant change from previous tracing noted. DOCTOR: Alvarez Garibay Interpretating Date/Time 07/11/2017 05:39:14
[2017-07-11] MEDS: LEVOTHYROXINE SODIUM 50 MCG TAB PO SCH (06:43)
[2017-07-11 07:00] VITALS: BP 108/49; PULSE 62; PULSE 65; RESP 16; TEMP 97.8; O2SAT 97
[2017-07-11] MEDS: CLOPIDOGREL 75 MG TAB PO SCH (08:20)
[2017-07-11] MEDS: PARoxetine HCL 20 MG TAB PO SCH (08:21)
[2017-07-11] MEDS: FUROSEMIDE 20 MG TAB PO SCH (08:22)
--- NOTE | 2017-07-11 08:27 | PD.CARD.PN ---
Subjective Subjective Remarks Feels okay Objective Medications Current Medications Medications (Trade) Dose Ordered Sig/Yakelin Route Start Time Stop Time Status Last Admin Cefazolin Sodium 2000 mg/Sodium Chloride 120 ml @ 240 mls/hr RHEUMATOLOGIST PRN IV 07/09/17 09:15 07/12/17 09:14 (Betadine 5% Antisepsis Kit) 1 applic RHEUMATOLOGIST PRN EACH NARE 07/09/17 09:15 07/12/17 09:14 (Bactroban Nasal 2% Oint) 1 applic RHEUMATOLOGIST PRN EACH NARE 07/09/17 09:15 07/12/17 09:14 (Chlorhexidine 2% Cloth) 3 pack RHEUMATOLOGIST PRN TOPICAL 07/09/17 09:15 07/12/17 09:14 07/09/17 09:49 (Aspirin) 325 mg RHEUMATOLOGIST PO 07/09/17 09:30 07/12/17 09:29 07/09/17 09:48 Lactated Ringer's 1,000 ml @ 30 mls/hr Q24H PRN IV 07/09/17 09:30 07/12/17 09:29 Sodium Chloride 500 ml @ 30 mls/hr [id number] PRN IV 07/09/17 09:30 07/12/17 09:29 (Lopressor) 25 mg RHEUMATOLOGIST PRN PO 07/09/17 09:30 07/12/17 09:29 (Betadine 5% Antisepsis Kit) 1 applic RHEUMATOLOGIST PRN EACH NARE 07/09/17 09:30 07/12/17 09:29 07/09/17 09:49 (Chlorhexidine 2% Cloth) 3 pack RHEUMATOLOGIST PRN TOPICAL 07/09/17 09:30 07/12/17 09:29 Miscellaneous Information 1 UNSCH X1 OTHER 07/09/17 14:00 07/11/17 13:59 (Plavix) 75 mg DAILY PO 07/10/17 09:00 07/11/17 08:20 (D50w (Vial) Inj) 50 ml UNSCH PRN IV PUSH 07/09/17 13:45 (Glucagon Inj) 1 mg UNSCH PRN OTHER 07/09/17 13:45 (Lasix) 20 mg DAILY PO 07/10/17 09:00 07/11/17 08:22 (Apresoline) 50 mg Q8HR PRN PO 07/09/17 15:00 (Catapres) 0.1 mg Q6H PRN PO 07/09/17 15:00 (Synthroid) 50 mcg DAILY@0600 PO 07/10/17 06:00 07/11/17 06:43 (Paxil) 10 mg DAILY PO 07/10/17 09:00 07/11/17 08:21 (Pill Splitter) 1 ea UNSCH PRN OTHER 07/09/17 20:15 (Percocet 5-325 Mg) 1 tab Q4H PRN PO 07/09/17 23:15 07/09/17 23:32 (Percocet 5-325 Mg) 2 tab Q4H PRN PO 07/09/17 23:15 (Prinivil) 2.5 mg DAILY PO 07/11/17 09:00 07/11/17 08:21 Vital Signs / I&O Vital Signs Date Time Temp Pulse Resp B/P (MAP) Pulse Ox O2 Delivery O2 Flow Rate FiO2 07/11/17 07:00 97.8 65 16 108/49 (68) 97 07/11/17 07:00 62 07/11/17 03:00 97.1 64 20 144/55 (84) 94 07/11/17 03:00 66 07/10/17 23:00 97.7 60 20 114/49 (70) 95 07/10/17 23:00 61 07/10/17 22:15 21 07/10/17 20:00 98.1 65 20 120/55 (76) 96 07/10/17 19:00 67 07/10/17 15:08 62 07/10/17 15:07 98.3 67 16 101/49 (66) 98 07/10/17 11:20 62 07/10/17 11:18 98.3 62 16 112/45 (67) 95 Arterial Line 07/10/17 09:05 21 I/O 07/10/17 07/10/17 07/10/17 07/11/17 07/11/17 07/11/17 07:00 15:00 23:00 07:00 15:00 23:00 Intake Total 480 ml 1000 ml 240 ml Output Total 995 ml 1300 ml 1200 ml Balance -515 ml -300 ml -960 ml Intake Oral 480 ml 1000 ml 240 ml Output Urine Total 995 ml 1300 ml 1200 ml # Voids 7 # Bowel Movements 0 0 Physical Exam GENERAL: Well-nourished, well-developed patient. SKIN: Warm and dry. HEAD: Normocephalic. EYES: No scleral icterus. No injection or drainage. NECK: Supple, trachea midline. No JVD or lymphadenopathy. CARDIOVASCULAR: Regular rate and rhythm without murmurs, gallops, or rubs. RESPIRATORY: Breath sounds equal bilaterally. No accessory muscle use. GASTROINTESTINAL: Abdomen soft, non-tender, nondistended. EXTREMITIES: No cyanosis, or edema. NEUROLOGICAL: Awake, alert, and oriented x 3. Non-focal. Assessment and Plan Problem List: (1) S/P TAVR (transcatheter aortic valve replacement) ICD Codes: Z95.2 - Presence of prosthetic heart valve Plan: Remains in sinus rhythm this morning. No further arrhythmias noted. Stable for discharge from electrophysiology standpoint when cleared by managing team per my discussion with Dr. Heard. Ariana Light Jul 11, 2017 08:27
--- NOTE | 2017-07-11 08:43 | PD.CARD.PN ---
Subjective Subjective Remarks Doing well. Has been ambulating in her room. Denies any chest pain, shortness of breath, palpitations, lightheadedness, dizziness. Objective Medications Current Medications Medications (Trade) Dose Ordered Sig/Yakelin Route Start Time Stop Time Status Last Admin Cefazolin Sodium 2000 mg/Sodium Chloride 120 ml @ 240 mls/hr BIT SETTER PRN IV 07/09/17 09:15 07/12/17 09:14 (Betadine 5% Antisepsis Kit) 1 applic BIT SETTER PRN EACH NARE 07/09/17 09:15 07/12/17 09:14 (Bactroban Nasal 2% Oint) 1 applic BIT SETTER PRN EACH NARE 07/09/17 09:15 07/12/17 09:14 (Chlorhexidine 2% Cloth) 3 pack BIT SETTER PRN TOPICAL 07/09/17 09:15 07/12/17 09:14 07/09/17 09:49 (Aspirin) 325 mg BIT SETTER PO 07/09/17 09:30 07/12/17 09:29 07/09/17 09:48 Lactated Ringer's 1,000 ml @ 30 mls/hr Q24H PRN IV 07/09/17 09:30 07/12/17 09:29 Sodium Chloride 500 ml @ 30 mls/hr [id number] PRN IV 07/09/17 09:30 07/12/17 09:29 (Lopressor) 25 mg BIT SETTER PRN PO 07/09/17 09:30 07/12/17 09:29 (Betadine 5% Antisepsis Kit) 1 applic BIT SETTER PRN EACH NARE 07/09/17 09:30 07/12/17 09:29 07/09/17 09:49 (Chlorhexidine 2% Cloth) 3 pack BIT SETTER PRN TOPICAL 07/09/17 09:30 07/12/17 09:29 Miscellaneous Information 1 UNSCH X1 OTHER 07/09/17 14:00 07/11/17 13:59 (Plavix) 75 mg DAILY PO 07/10/17 09:00 07/11/17 08:20 (D50w (Vial) Inj) 50 ml UNSCH PRN IV PUSH 07/09/17 13:45 (Glucagon Inj) 1 mg UNSCH PRN OTHER 07/09/17 13:45 (Lasix) 20 mg DAILY PO 07/10/17 09:00 07/11/17 08:22 (Apresoline) 50 mg Q8HR PRN PO 07/09/17 15:00 (Catapres) 0.1 mg Q6H PRN PO 07/09/17 15:00 (Synthroid) 50 mcg DAILY@0600 PO 07/10/17 06:00 07/11/17 06:43 (Paxil) 10 mg DAILY PO 07/10/17 09:00 07/11/17 08:21 (Pill Splitter) 1 ea UNSCH PRN OTHER 07/09/17 20:15 (Percocet 5-325 Mg) 1 tab Q4H PRN PO 07/09/17 23:15 07/09/17 23:32 (Percocet 5-325 Mg) 2 tab Q4H PRN PO 07/09/17 23:15 (Prinivil) 2.5 mg DAILY PO 07/11/17 09:00 07/11/17 08:21 Vital Signs / I&O Vital Signs Date Time Temp Pulse Resp B/P (MAP) Pulse Ox O2 Delivery O2 Flow Rate FiO2 07/11/17 07:00 97.8 65 16 108/49 (68) 97 07/11/17 07:00 62 07/11/17 03:00 97.1 64 20 144/55 (84) 94 07/11/17 03:00 66 07/10/17 23:00 97.7 60 20 114/49 (70) 95 07/10/17 23:00 61 07/10/17 22:15 21 07/10/17 20:00 98.1 65 20 120/55 (76) 96 07/10/17 19:00 67 07/10/17 15:08 62 07/10/17 15:07 98.3 67 16 101/49 (66) 98 07/10/17 11:20 62 07/10/17 11:18 98.3 62 16 112/45 (67) 95 Arterial Line 07/10/17 09:05 21 I/O 07/10/17 07/10/17 07/10/17 07/11/17 07/11/17 07/11/17 07:00 15:00 23:00 07:00 15:00 23:00 Intake Total 480 ml 1000 ml 240 ml Output Total 995 ml 1300 ml 1200 ml Balance -515 ml -300 ml -960 ml Intake Oral 480 ml 1000 ml 240 ml Output Urine Total 995 ml 1300 ml 1200 ml # Voids 7 # Bowel Movements 0 0 Physical Exam GENERAL: Well-developed well-nourished. In no acute distress. NECK: No carotid bruits. No JVD. CARDIOVASCULAR: Regular rate and rhythm. Yates heart sounds. RESPIRATORY: No accessory muscle use. Clear to auscultation. Breath sounds equal bilaterally. MUSCULOSKELETAL: No clubbing or cyanosis. No edema. NEUROLOGICAL: Awake and alert. Normal speech. Imaging Last Impressions Chest X-Ray 07/10/17 0000 Signed Impressions: Service Date/Time: July 09:06 - CONCLUSION: Stable appearance to the lungs with slight loss in left hemithorax and medial left upper lung consolidation. Rxgppi-l-Hema catheter tip in good position. No evidence of pneumothorax. Robbin Rose MD Assessment and Plan Problem List: (1) S/P TAVR (transcatheter aortic valve replacement) ICD Codes: Z95.2 - Presence of prosthetic heart valve Assessment and Plan severe - s/p TAVR . doing well. no complaints bradycardia - resolved after diltiazem discontinued. Cleared by EP for discharge. hypotension - asymptomatic. SBP 90-100. Improving after decreased lisinopril to 2.5 mg daily acute on chronic diastolic heart failure- well compensated. lasix 20 mg daily. DC planning for today asa and plavix Derik Tay Jul 11, 2017 08:42
--- NOTE | 2017-07-11 08:43 | ECHRPT ---
Indication: ef assessment of chf CONCLUSIONS The left ventricular systolic function is hyperdynamic with an estimated ejection fraction in the ra nge of 65- 70%. Normal left ventricular size. Moderate concentric left ventricular hypertrophy. No regional wall motion abnormalities are present. The aortic valve prosthesis is normal to two-dimensional, color flow and Doppler interrogation. BP: / HR: Rhythm: MEASUREMENTS (Male / Female) Normal Values Technical Quality: 2D ECHO LV Diastolic Diameter PLAX 4.3 cm 4.2 - 5.9 / 3.9 - 5.3 cm LV Systolic Diameter PLAX 2.9 cm IVS Diastolic Thickness 1.5 cm 0.6 - 1.0 / 0.6 - 0.9 cm LVPW Diastolic Thickness 1.5 cm 0.6 - 1.0 / 0.6 - 0.9 cm LV Relative Wall Thickness 0.7 LVOT Diameter 2.0 cm LV Ejection Fraction MOD 4C 66.1 % LV Ejection Fraction 4C AL 67.4 % M-MODE Aortic Root Diameter MM 1.6 cm AV Cusp Separation MM 1.3 cm DOPPLER AV Peak Velocity 207.0 cm/s AV Peak Gradient 17.1 mmHg AV Mean Gradient 10.0 mmHg AV Velocity Time Integral 41.8 cm LVOT Peak Velocity 131.0 cm/s LVOT Peak Gradient 6.9 mmHg LVOT Velocity Time Integral 23.0 cm AV Area Cont Eq vti 1.7 cm AV Area Cont Eq pk 2.0 cm MV Area PHT 3.7 cm Mitral E Point Velocity 104.0 cm/s Mitral A Point Velocity 27.1 cm/s Mitral E to A Ratio 3.8 TR Peak Velocity 322.0 cm/s TR Peak Gradient 41.5 mmHg Right Atrial Pressure 10.0 mmHg Pulmonary Artery Systolic Pressu 51.5 mmHg Right Ventricular Systolic Press 51.5 mmHg FINDINGS LEFT VENTRICLE The left ventricular systolic function is hyperdynamic with an estimated ejection fraction in the ra nge of 65- 70%. Normal left ventricular size. Moderate concentric left ventricular hypertrophy. No regional wall motion abnormalities are present. AORTIC VALVE The aortic valve prosthesis is normal to two-dimensional, color flow and Doppler interrogation. Aortic valve area is 1.7 cm. Aortic valve mean gradient is 10 mmHg. No paravalvular leak TRICUSPID VALVE Structurally normal tricuspid valve. There is moderate tricuspid regurgitation. The estimated pulmonary arterial pressure is 51.5 mmHg. Nigel Newell MD, FACC (Electronically Signed) Final Date:11 July 2017 08:42
[2017-07-11] MEDS ORDERED: PLAV75TA29 PO (08:47)
[2017-07-11] MEDS ORDERED: LISINOPRIL 5 MG TAB PO SCH (09:00)
[2017-07-11] MEDS ORDERED: BENA5TAB PO (09:22)
--- NOTE | 2017-07-11 09:23 | HHI.DS ---
Discharge Summary Admission Date Jul 09, 2017 at 07:45 Discharge Date: Jul 11, 2017 Admitting Diagnosis aortic stenosis Procedures transcatheter aortic valve replacement CBC/BMP: 07/10/17 0440 07/10/17 0440 Significant Findings Laboratory Tests Test 07/09/17 09:00 07/10/17 04:40 Red Blood Count 3.52 MIL/MM3 (4.00-5.30) 2.94 MIL/MM3 (4.00-5.30) Hematocrit 34.0 % (35.0-46.0) 28.4 % (35.0-46.0) Platelet Count 129 TH/MM3 (150-450) 121 TH/MM3 (150-450) Neutrophils (%) (Auto) 75.7 % (16.0-70.0) Monocytes (%) (Auto) 10.7 % (0.0-8.0) Lymphocytes # (Auto) 0.7 TH/MM3 (1.0-4.8) Blood Urea Nitrogen 19 MG/DL (7-18) Potassium Level 3.2 MEQ/L (3.5-5.1) Chloride Level 109 MEQ/L (98-107) Estimat Glomerular Filtration Rate 87 ML/MIN (>89) White Blood Count 11.8 TH/MM3 (4.0-11.0) Hemoglobin 9.9 GM/DL (11.6-15.3) Random Glucose 124 MG/DL (74-106) Calcium Level 7.9 MG/DL (8.5-10.1) Pt Condition on Discharge: Good Discharge Disposition: Discharge Home Discharge Instructions DIET: Follow Instructions for: Heart Healthy Diet Activities you can perform: Weight Bearing as Nigel Don MD Jul 11, 2017 09:23
--- NOTE | 2017-07-11 10:29 | EKG ---
Date Performed: 07/09/2017 Time Performed: 14:12:52 PTAGE: 87 years EKG: Possible ectopic atrial bradycardia with interpolated PVC(s) Left bundle branch block Abnor mal ECG PREVIOUS TRACING : 07/09/2017 09.37 Since the prior tracing, the ectopic atrial rhythm and the left bundle branch block are new. Clinical correlation will be important. DOCTOR: Ashley Alvarado Interpretating Date/Time 07/11/2017 10:28:05
--- NOTE | 2017-07-11 10:35 | EKG ---
Date Performed: 07/10/2017 Time Performed: 05:02:34 PTAGE: 87 years EKG: Sinus bradycardia with 1st degree A-V block Possible faulty V2 - omitted from analysis Infe rior/lateral ST-T changes may be due to myocardial ischemia Abnormal ECG PREVIOUS TRACING : 07/09/2017 14.12 Since the prior tracing, the surpaventricular bradycardia h as resolved, but this still may be an ectopic atrial rhythm. The left bundle branch block has resolve d. The lateral T-wave changes are not directly comparable because of the previous left branch block. Clinical correlation advised. DOCTOR: Ashley Alvarado Interpretating Date/Time 07/11/2017 10:34:26
== END 2017-07-11 10:05 | disposition home or self-care (01) | DRG 266 ==
LOC: HDIC 07:45 → HCVI 13:30
PROVIDERS: ADMIT Internal Medicine; ATTEND Internal Medicine
PROC: 02RF38Z Replacement of Aortic Valve with Zooplastic Tissue, Percutaneous Approach (ICD-10-PCS; principal; 2017-07-09 10:45)
PROC: B246ZZ4 Ultrasonography of Right and Left Heart, Transesophageal (ICD-10-PCS; 2017-07-09 10:45)
DX: I35.0 Nonrheumatic aortic (valve) stenosis (principal); I50.33 Acute on chronic diastolic (congestive) heart failure; I95.9 Hypotension, unspecified; Z99.81 Dependence on supplemental oxygen; I11.0 Hypertensive heart disease with heart failure; R00.1 Bradycardia, unspecified; E03.9 Hypothyroidism, unspecified; I25.10 Atherosclerotic heart disease of native coronary artery without angina pectoris; Z86.73 Personal history of transient ischemic attack (TIA), and cerebral infarction without residual deficits; Z85.118 Personal history of other malignant neoplasm of bronchus and lung; Z87.891 Personal history of nicotine dependence; Z00.6 Encounter for examination for normal comparison and control in clinical research program
CPT/HCPCS: 33210; 33361; 71045; 76937; 80048; 85002; 85025; 85027; 85610; 85730; 86850; 86900; 86901; 86920; 92986; 93005; 93308; 93312; 93318; 93320; 93325; 94150; C1760; C1769; C1893; G0269; J1100; J1644; J2250; J2370; J2405; J2710; J2720; J3010; J3480; J7030; Q9967